=== PATIENT | female | born 1960 | race Caucasian/White ===

== ENCOUNTER 2016-10-18 10:54 | Emergency (ER) | payer MEDICARE ==
[~2016-10-18] VITALS: Ht 170.2 cm; Wt 215.5 kg
[~2016-10-18 10:54] MED LIST: ASPI-39 PO; ASPI-630 PO; ASPI325T8 PO; ATOR40TA59 PO; BUPR150T11 PO; CITA40TA5 PO; DOCU50CA9 PO; GEMF600T3 PO; GLIM4TAB2 PO; HUM100VI5 SQ; INSU100C4 SQ; LANS30CA PO; LOSA1TAB16 PO; LOSA50TA6 PO; METF-620 PO; METF1000 PO; MULT1TAB49 PO; NPH,100V5 SQ; OLME40TA12 PO; OMEP40CA5 PO; POTA20TA84 PO; PSYL0.527 PO; VITA1TAB19 PO
--- NOTE | 2016-10-18 11:25 | EKG ---
[facility] [address] [place] [address] Test Date: 2016-10-18 Test Time: 11:01:20 Pat Name: RACHELLE GONZALEZ Department: Room: Gender: F [employer]: : 1960 Requested By: CHICO PRIETO Order Number: [id number] Reading MD: Measurements Intervals Mamou Rate: 71 P: 51 IN: 168 QRS: -28 QRSD: 72 T: 40 QT: 410 QTc: 446 Interpretive Statements SINUS RHYTHM LEFTWARD AXIS QRS(T) CONTOUR ABNORMALITY CONSISTENT WITH ANTEROSEPTAL INFARCT AGE UNDETERMINED ABNORMAL ECG RI6.01 No previous ECG available for comparison
[2016-10-18 11:36] LABS: BASO # 0.1 x10^3/uL (0.0-0.2); BASO % 1 % (0-3); EOS % 1 % (0-3); HEMATOCRIT 40.7 % (36.0-47.0); HEMOGLOBIN 13.1 g/dL (12.0-15.5); LYMPH # 1.5 x10^3/uL (1.0-4.8); LYMPH % 14 % (24-48); MEAN CORPUSCULAR HEMOGLOBIN 25 pg (25-35); MEAN CORPUSCULAR HGB CONC 32 g/dL (31-37); MEAN CORPUSCULAR VOLUME 79 fL (79-100); MONO % 4 % (0-9); NEUT % 80 % (31-73); PLATELET COUNT 327 x10^3/uL (140-400); RED BLOOD COUNT 5.16 x10^6/uL (3.50-5.40); RED CELL DISTRIBUTION WIDTH 15.6 % (11.5-14.5); WHITE BLOOD COUNT 10.7 x10^3/uL (4.0-11.0)
[2016-10-18 11:47] LABS: CALCIUM 9.3 mg/dL (8.5-10.1); CREATININE 0.8 mg/dL (0.6-1.0); GFR 74.5; POTASSIUM 4.5 mmol/L (3.5-5.1)
[2016-10-18 11:53] LABS: ALBUMIN 3.4 g/dL (3.4-5.0); ALBUMIN/GLOBULIN RATIO 0.9 (1.0-1.7); TOTAL BILIRUBIN 0.4 mg/dL (0.2-1.0)
--- NOTE | 2016-10-18 12:02 | RAD ---
Portable chest, 10/18/2016: History: Chest pain Comparison is made to a study from 01/05/2016. The heart is enlarged. The pulmonary vascularity is at the upper limits of normal. No pulmonary infiltrates are seen. There is no evidence of pleural fluid. Scattered degenerative changes are evident in the spine. IMPRESSION: Mild cardiomegaly borderline vascular congestion.
[2016-10-18] MEDS ORDERED: FURO-68 PO (12:16)
[2016-10-18] MEDS ORDERED: ATOR40TA PO (12:16)
[2016-10-18] MEDS ORDERED: ASPI325T70 PO (12:16)
--- NOTE | 2016-10-18 12:39 | ED.ADGEN ---
Past Medical History Past Medical History: Diabetes-Type II, Hypertension Additional Past Medical Histor: HIGH CHOL, CHRONIC PAIN, MORBID OBESITY Past Surgical History: Other Additional Past Surgical Histo: hernia repair Alcohol Use: None Drug Use: None Adult General Chief Complaint Chief Complaint: UPPER EXTREMITY PAIN HPI HPI Patient is a 56 year old female who presents with intermittent left arm/bicep pain for several hours. Patient states symptoms began while she was sleeping. She reports reports brief squeezing episodes are bicep lasting less than 8 seconds per episode with multiple episodes per hour. Arm tightness is not associated with shortness of breath, nausea sweats. It is nonexertional. Patient has not had an episode in the past 3 hours. She denies exertional chest pain or shortness of breath, nausea, orthopnea and paroxysmal nocturnal dyspnea or other cardiac symptomatology chronically. She denies left arm strain or injury. No history of DVT or PE. No other acute symptoms or complaints. Review of Systems Review of Systems ROS as per HPI. Allergies Allergies Allergies Coded Allergies Type Severity Reaction Last Updated Verified No Known Drug Allergies 01/04/16 No Physical Exam Physical Exam Constitutional: Well developed, well nourished, no acute distress, non-toxic appearance. HENT: Normocephalic, atraumatic, bilateral external ears normal, oropharynx moist. Eyes: PERRLA, EOMI, conjunctiva normal. Neck: Normal range of motion, no tenderness, supple. Cardiovascular:Heart rate regular rhythm. Lungs & Thorax: Bilateral breath sounds clear to auscultation . Abdomen: Bowel sounds normal, soft, obesity compromising evaluation. Skin: Warm, dry. Back: No tenderness. Extremities: Left upper extremity, no swelling bruising erythema appreciated. No palpable cords. No pain or tenderness on my evaluation. Neurologic: Alert and oriented X 3, normal motor function, normal sensory function. Psychologic: Affect normal, judgement normal, mood normal. Current Patient Data Vital Signs Vital Signs Date Time Temp Pulse Resp B/P (MAP) Pulse Ox O2 Delivery O2 Flow Rate FiO2 10/18/16 13:58 79 18 145/63 (90) 96 Room Air 10/18/16 10:59 98.6 98.6 Lab Values Laboratory Tests Test 10/18/16 11:05 White Blood Count 10.7 x10^3/uL (4.0-11.0) Red Blood Count 5.16 x10^6/uL (3.50-5.40) Hemoglobin 13.1 g/dL (12.0-15.5) Hematocrit 40.7 % (36.0-47.0) Mean Corpuscular Volume 79 fL (79-100) Mean Corpuscular Hemoglobin 25 pg (25-35) Mean Corpuscular Hemoglobin Concent 32 g/dL (31-37) Red Cell Distribution Width 15.6 % (11.5-14.5) H Platelet Count 327 x10^3/uL (140-400) Neutrophils (%) (Auto) 80 % (31-73) H Lymphocytes (%) (Auto) 14 % (24-48) L Monocytes (%) (Auto) 4 % (0-9) Eosinophils (%) (Auto) 1 % (0-3) Basophils (%) (Auto) 1 % (0-3) Neutrophils # (Auto) 8.6 x10^3uL (1.8-7.7) H Lymphocytes # (Auto) 1.5 x10^3/uL (1.0-4.8) Monocytes # (Auto) 0.5 x10^3/uL (0.0-1.1) Eosinophils # (Auto) 0.1 x10^3/uL (0.0-0.7) Basophils # (Auto) 0.1 x10^3/uL (0.0-0.2) D-Dimer (Stephanie) 0.27 ug/mlFEU (0.00-0.50) Sodium Level 146 mmol/L (136-145) H Potassium Level 4.5 mmol/L (3.5-5.1) Chloride Level 106 mmol/L (98-107) Carbon Dioxide Level 28 mmol/L (21-32) Anion Gap 12 (6-14) Blood Urea Nitrogen 15 mg/dL (7-20) Creatinine 0.8 mg/dL (0.6-1.0) Estimated GFR (Cockcroft-Gault) 74.5 BUN/Creatinine Ratio 19 (6-20) Glucose Level 147 mg/dL (70-99) H Calcium Level 9.3 mg/dL (8.5-10.1) Total Bilirubin 0.4 mg/dL (0.2-1.0) Aspartate Amino Transferase (AST) 20 U/L (15-37) Alanine Aminotransferase (ALT) 18 U/L (14-59) Alkaline Phosphatase 83 U/L (46-116) Troponin I Quantitative < 0.017 ng/mL (0.000-0.055) Total Protein 7.0 g/dL (6.4-8.2) Albumin 3.4 g/dL (3.4-5.0) Albumin/Globulin Ratio 0.9 (1.0-1.7) L Laboratory Tests 10/18/16 11:05 Laboratory Tests 10/18/16 11:05 EKG EKG [EKG: Normal sinus rhythm, no acute ST-T wave changes.] Radiology/Procedures Radiology/Procedures [] Course & Med Decision Making Course & Med Decision Making Pertinent Labs and Imaging studies reviewed. (See chart for details) [She denies chest pain, shortness of breath, arm or shoulder pain on ED arrival. Symptoms are very atypical current rest and last less than 10 seconds at a time. Lab work, EKG are unremarkable. Patient does acknowledge being anxious with difficulty sleeping at night with insomnia for the past several nights. She also reports hyperreligious hallucinations and depression with thoughts of self-harm. Patient requesting evaluation and treatment for depression. Psychiatric assessment team consult sitting with recommendations for outpatient placement at local [facility] healthcare facility.] Dragon Disclaimer Dragon Disclaimer This electronic medical record was generated, in whole or in part, using a voice recognition dictation system. CHICO PRIETO DO Oct 18, 2016 12:39
[2016-10-18 13:58] VITALS: BP 145/63
== END 2016-10-18 18:34 | disposition home or self-care (01) ==
LOC: ER 10:54
DX: M79.602 Pain in left arm (principal); G47.00 Insomnia, unspecified; R44.3 Hallucinations, unspecified; F32.9 Major depressive disorder, single episode, unspecified; E11.9 Type 2 diabetes mellitus without complications; E66.01 Morbid (severe) obesity due to excess calories; G89.29 Other chronic pain; I10 Essential (primary) hypertension; E78.00 Pure hypercholesterolemia, unspecified; Z68.45 Body mass index [BMI] 70 or greater, adult
CPT/HCPCS: 36415; 71010; 80053; 84484; 85027; 85379; 93005; 99285-25